=== PATIENT | female | born 1990 | race American Indian/Alaskan Native ===

== ENCOUNTER 2017-09-19 11:32 | Emergency (ER) | payer SELFPAY ==
[2017-09-19 11:49] VITALS: BP 123/81
[2017-09-19] MEDS ORDERED: TRIPLE ANTIBIOTIC TP ONE ×2 (12:12→12:19)
[2017-09-19] MEDS ORDERED: MOTRIN PO ONE (12:12)
--- NOTE | 2017-09-19 12:18 | Emergency Department Report ---
ED Laceration HPI - HPI Chief Complaint: Laceration/Recheck/Suture Stated Complaint: RIGHT WRIST LACERATION Time Seen by Provider: 09/19/17 12:00 Location: Upper Extremity Severity: mild Tetanus Status: Up to Date Laceration Symptoms: Yes Pain, No Foreign Body Sensation, No Numbness, No Weakness Other History: 19-year-old female history presents laceration to the right wrist that happened last night. Patient states she was climbing out of a trial when she accidentally cut her right wrist on to something sharp. Patient states she wrapped it up last night. Patient presents today to be evaluated. She states her vaccinations and tetanus are up-to-date. ED Review of Systems ROS: Stated complaint: RIGHT WRIST LACERATION Other details as noted in HPI Constitutional: denies: chills, fever Eyes: denies: eye pain, eye discharge, vision change ENT: denies: ear pain, throat pain Respiratory: denies: cough, shortness of breath, wheezing Cardiovascular: denies: chest pain, palpitations Endocrine: no symptoms reported Gastrointestinal: denies: abdominal pain, nausea, diarrhea Genitourinary: denies: urgency, dysuria, discharge Musculoskeletal: denies: back pain, joint swelling, arthralgia Skin: denies: rash, lesions Neurological: denies: headache, weakness, paresthesias Psychiatric: denies: anxiety, depression Hematological/Lymphatic: denies: easy bleeding, easy bruising ED Past Medical Hx - Past Medical History Previous Medical History?: No - Surgical History Hx Cholecystectomy: Yes - Social History Smoking Status: Never Smoker Substance Use Type: None - Medications Home Medications: Home Medications Medication Instructions Recorded Confirmed Last Taken Type Cephalexin [Keflex] 500 mg PO Q12HR #10 cap 09/19/17 Unknown Rx Ibuprofen [Motrin 800 MG tab] 800 mg PO TID #20 tablet 09/19/17 Unknown Rx Laceration Physical Exam - Exam General: Vital signs noted. No distress. Alert and acting appropriately. Wound Length (cm): 0 (.5) Laceration Location: Upper Extremity (mid Right anterior wrist,vertical) Laceration Exam: No Foreign Body, No Exposed Tendon, Vessel, or Nerve, No Tendon Injury, No Normal Distal CMS ED Course Vital Signs 09/19/17 11:46 Temperature 98.5 F Pulse Rate 89 Respiratory 18 Rate Blood Pressure 123/81 O2 Sat by Pulse 98 Oximetry ED Medical Decision Making - Medical Decision Making 27-year-old female presents with abrasion to the right wrist The 0.5cm superficial laceration abrasion was cleaned and draped in a sterile fashion. Triple antibiotic supplied, I discussed with the patient should be going home on some antibiotics to prevent infection due to tetanus being up-to-date patient did not receive a tetanus booster in ED today. Abrasion did not need any sutures Discussed acute wound care with patient Patient received Motrin in ED. Discussed the patient to follow-up primary care physician in 3-5 days. Signs are stable patient is in no acute distress Critical care attestation.: If time is entered above; I have spent that time in minutes in the direct care of this critically ill patient, excluding procedure time. ED Disposition Clinical Impression: Hand abrasion, non-infected Disposition: TO HOME OR SELFCARE Is pt being admited?: No Does the pt Need Aspirin: No Condition: Stable Instructions: Acute Wound Care (ED), Abrasion (ED) Additional Instructions: Make sure to follow up with the primary care physician as discussed. Take all your medications as you've been prescribed. Clean wound daily, apply triple antibiotic to the cut. keep dressed. If you have any worsening symptoms or develop new symptoms please return to ED immediately. Prescriptions: Cephalexin [Keflex] 500 mg PO Q12HR #10 cap Ibuprofen [Motrin 800 MG tab] 800 mg PO TID #20 tablet Referrals: PRIMARY CARE, [Primary Care Provider] - 3-5 Days [facility] [Outside] - 3-5 Days [facility] [Outside] - 3-5 Days Forms: Accompanied Note, Work/School Release Form(ED) Time of Disposition: 12:20
[2017-09-19] MEDS ORDERED: MOTRIN ONE (12:19)
== END 2017-09-19 12:38 | disposition home or self-care (01) ==
LOC: ED 11:32
DX: S61.511A Laceration without foreign body of right wrist, initial encounter (principal); Z90.49 Acquired absence of other specified parts of digestive tract; W26.8XXA Contact with other sharp object(s), not elsewhere classified, initial encounter; Y93.89 Activity, other specified; Y92.89 Other specified places as the place of occurrence of the external cause; Y99.8 Other external cause status
CPT/HCPCS: A6250